=== PATIENT | male | born 1940 | race Caucasian/White ===

== ENCOUNTER 2019-03-07 20:56 | Inpatient (IN) | payer OTHER ==
[~2019-03-07] VITALS: Ht 177.8 cm; Wt 83.5 kg
[2019-03-07 20:58] VITALS: Ht 177.8 cm; Wt 83.5 kg
--- NOTE | 2019-03-07 20:58 | NUR ---
PT PRESENTED TO ED VIA AMBULANCE FOR GENERALIZED WEAKNESS, SOB, AND RIGHT LEG PAIN. MEDIC STATES THAT FAMILY REPORTED PT "SWEATY LAYING ON BED" AND "APPEARED SOB" TODAY.MEDIC STATES UPON ARRIVAL PT DENIED SOB, BUT REPORTED DIZZINESS. MEDIC STATES EXERTIONAL SOB WHEN ASSISTING PT FROM BED TO GURENY. MEDIC STATES PT CALM & COOPERATIVE. MEDIC STATES PT DESAT WITH ACTIVITY AND UPON ARRIVAL TO ED. PT A&OX4, SPEAKING FULL CLEAR SENTENCES ON 02 VIA NC. PT IN NAD. BREATHING EVEN AND UNLABORED. PITTING EDEMA NOTED TO BLE. FAMILY STATES THEY ATTEMPTED TO BP AT HOME AND "BP WAS ALL OVER THE PLACE". PT IN NAD. CM AND [address] FAMILY AT BEDSIDE. WILL CONTINUE TO MONITOR.
[2019-03-07 21:37] LABS: BASOPHIL % 0.5 % (0-2); PLATELET COUNT 237 x10^3mcL (130-400); RED CELL DISTRIBUTION WIDTH 14.4 % (11.5-14.5)
[2019-03-07 21:46] LABS: CALCIUM 9.6 mg/dL (8.5-10.1); CARBON DIOXIDE 26.4 mmol/L (21-32); CHLORIDE SERUM 98 mmol/L (98-107); CREATININE SERUM 1.3 mg/dL (0.7-1.3); GLUCOSE SERUM 221 mg/dL (74-106); POTASSIUM SERUM 4.5 mmol/L (3.5-5.1); SODIUM SERUM 137 mmol/L (136-145)
--- NOTE | 2019-03-07 21:50 | NUR ---
ASSISTED PT TO SITTING POSITION ON SIDE OF GURNEY IN ATTEMPT TO OBTAIN URINE SAMPLE. PT STATES UNABLE TO PROVIDE URINE AT THIS TIME. EDUCATED PT AND FAMILY ON IMPORTANCE OF OBTAINING URINE. PT AND FAMILY ACKNOWLGED. PT ASSISTED BACK TO LAYING POSITION WITH HOB RAISED FOR COMFORT. DR SALMERON MADE AWARE.
[2019-03-07 21:56] LABS: ALBUMIN 3.2 g/dL (3.4-5.0); ALKALINE PHOSPHATASE 92 U/L (46-116); ALT/SGPT 57 U/L (16-63); AST/SGOT 41 U/L (15-37); BILIRUBIN TOTAL 0.6 mg/dL (0.20-1.00); TOTAL PROTEIN, SERUM 7.3 g/dL (6.4-8.2)
--- NOTE | 2019-03-07 22:02 | NUR ---
PT TO RADIOLOGY VIA [facility]
--- NOTE | 2019-03-07 22:36 | NUR ---
PER DR SALMERON, STRAIGHT CATH PT FOR URINE SAMPLE. PT STRAIGHT CATHED WITH APPROX 100 CC URINE OUTPUT. PT TOLERATED WELL. ACCOMPANIED BY EMT DOREEN.
[2019-03-07 22:48] LABS: UA SPECIFIC GRAVITY 1.025 (1.005-1.035); microscopic required? YES
[2019-03-07 22:49] LABS: urine erythrocyte 2+ (NEGATIVE)
--- NOTE | 2019-03-07 22:50 | NUR ---
PT C/O PAIN 10/[address] SALMERON MADE AWARE, AWAITING ORDERS AT THIS TIME.
--- NOTE | 2019-03-07 23:00 | NUR ---
MORPHINE 4 MG IVP TO L AC GIVEN BY ME, NOT MACO FITZGERALD.
--- NOTE | 2019-03-08 00:03 | NUR ---
CALLED REPORT TO CEE FITZGERALD.
--- NOTE | 2019-03-08 00:35 | NUR ---
PT TRANSFERED VIA GURNEY AT THIS TIME IN NAD. BREATHING EVEN AND UNLABORED. PT A&OX4, SPEAKING FULL CLEAR SENTENCES. IV FLUIDS RUNNING AT ORDERED RATE. PT ACCOMPANIED BY EMT AND RN JAZZMINE. BELONGINGS SENT WITH PT.
[2019-03-08 00:58] VITALS: BP 100/52
--- NOTE | 2019-03-08 01:03 | NUR ---
RECEIVED PT FROM ED VIA ANGY. ORIENTED PT TO ROOM AND SURROUNDINGS. IV NOTED TO LAC PATENT AND INTACT. TELE 1 PLACED ON PT READING SR WITH DEPRESSED T WAVE. INSTRUCTED PT ON THE USE OF CALL LIGHT FOR ASSISTANCE. ENDORSED PT TO PRIMARY NURSE MICHAEL
--- NOTE | 2019-03-08 01:34 | NUR ---
PT STATES DIFFICULTY URINATING, PER PT SPOUSE PT HAS NOT URINATED SINCE 03/07/[address] VALENZUELA CALLED, AWAITING CALL BACK. PT IV BOLUS INFUSING AT THIS TIME. WILL DO BP RECHECK AFTER COMPLETED.
--- NOTE | 2019-03-08 03:03 | NUR ---
PT IS RESTING IN BED WITH EYES CLOSED AT THIS TIME. NO ACUTE DISTRESS NOTED. SAFETY AND COMFORT MEASURES MAINTAINED, BED IN LOWEST POSITION, CALL LIGHT WITHIN REACH, WILL CONTINUE TO MONITOR AT THIS TIME.
--- NOTE | 2019-03-08 03:18 | NUR ---
PT THIRD BOLUS COMPLETED. POST VITALS SIGNS ARE BP 98/62 MAP OF 73 HR 94. NO ACUTE DISTRESS NOTED. WILL CONTINUE TO MONITOR THE PATIENT.
[2019-03-08 05:39] VITALS: BP 110/69
--- NOTE | 2019-03-08 05:46 | NUR ---
PT SLEPT IN INTERMITTENT INTERVALS THROUGHOUT THE SHIFT, NO ACUTE DISTRESS NOTED. PT HAS BEEN ALERT AND ORIENTED X2, PT HAS CONFUSION SPELLS. IV INFUSING AND INTACT AT THIS TIME. PT HAS NO COMPLAINT OF PAIN AT THIS TIME. SAFETY AND COMFORT MEASURES MAINTAINED, BED IN LOWEST POSITION, CALL LIGHT WITHIN REACH, WILL ENDORSE CONTINUITY OF CARE TO THE ONCOMING RN. WILL CONTINUE TO MONITOR.
[2019-03-08 06:37] LABS: PLATELET COUNT 204 x10^3mcL (130-400); RED CELL DISTRIBUTION WIDTH 14.5 % (11.5-14.5)
[2019-03-08 07:03] LABS: CARBON DIOXIDE 23.9 mmol/L (21-32); CHLORIDE SERUM 105 mmol/L (98-107); CREATININE SERUM 1.1 mg/dL (0.7-1.3); GLUCOSE SERUM 135 mg/dL (74-106); MAGNESIUM 1.9 mg/dL (1.8-2.4); POTASSIUM SERUM 5.2 mmol/L (3.5-5.1); SODIUM SERUM 139 mmol/L (136-145)
[2019-03-08 07:23] LABS: FREE T4 1.29 ng/dL (0.76-1.46); FREE THYROXINE INDEX 2.5 ug/dL (1.4-4.5); T4(THYROXINE) 6.8 ug/dL (4.7-13.3)
--- NOTE | 2019-03-08 07:30 | NUR ---
RECIEVED PT IN BED RESTING. STABLE WITH AT BEDSIDE. SAFETY PRECAUTIONS IN PLACE. CALL LIGHT WITHIN REACH. ASSESSED AND DOCUMENTED. WILL CONTINUE TO MONITOR.
[2019-03-08 07:36] LABS: T3 TOTAL 0.93 ng/mL
--- NOTE | 2019-03-08 09:00 | NUR ---
CAME TO SEE THE PT. INFORMED HIM ABOUT K=5.2. WBC=13.2, TROP 0.721 AND LACTIC ACID=2.1. NO NEW ORDER RECEIVED THIS TIME. INFORMED HIM ABOUT ER STRAIGHT CATH PT FOR URINE LAST NIGHT,AFTER THAT HE HAS NOT VOIDED. SAID IF HAS NOT VOIDED ANOTHER 4 MORE HOUR, INSERT OLIVIER CATH. WILL MONITOR THE PT. INFORMED RN KATEY,PRIMARY NURSE ABOUT THAT.
--- NOTE | 2019-03-08 09:00 | NUR ---
INFORMED ABOUT PT C/O RT LEG PAIN, HE SAID HE WILL ORDER US BLE.
[2019-03-08 09:44] VITALS: BP 114/64
--- NOTE | 2019-03-08 10:15 | NUR ---
PAGED FOR TO INFORM US VENEOUS BLE RESULT.
--- NOTE | 2019-03-08 10:58 | NUR ---
CALLED AND INFORMED HIM ABOUT US BLE VENEOUS RESULT, RECEIVED ORDER FOR LOVENOX 80MG SQ START FROM NOW, WILL START [facility] AVAILABLE.
--- NOTE | 2019-03-08 11:50 | NUR ---
BLADDER SCAN DONE PER CHARGE NURSE. FOUND 250 TO 300 ML URINE IN THE BLADDER. BLADDER IS NOT DISTENTED, NO TENDERNESS. FAMILY AT BEDSIDE.
--- NOTE | 2019-03-08 12:15 | NUR ---
2 RN AND ICE CREAM DISPENSER ASSISTED PT TO STAND UP FOR VOID, PT STANDING UP AND TRYING TO VOID. 1 RN AND ICE CREAM DISPENSER STILL STAYING WITH PT. PT VOIDED APPROX 350ML. STABLE.
--- NOTE | 2019-03-08 12:42 | NUR ---
TROP IS 0.644, TRENDING DOWN. AWARE ABOUT LAST TROP 0.721. PT IS STABLE. ON LOVENOX SQ AND GIVEN.
[2019-03-08 12:47] VITALS: BP 104/47
[2019-03-08 14:52] LABS: BAND NEUTROPHIL 1 % (0-10); BASOPHIL 0 % (0-2); MONOCYTE 6 % (0-7); SEGMENTED NEUTROPHILS 87 % (37-75)
[2019-03-08 14:53] LABS: PLATELET MORPHOLOGY PLATELETS DECREASED; ovalocyte/elliptocyte 3+; rbc morphology (normal/abnorm) ABNORMAL (NORMAL)
--- NOTE | 2019-03-08 15:50 | NUR ---
INFORMED ABOUT CT ANGIO PLUM RESULT. HE SAID TO START PT ON HEPARIN DRIP, PHARMACY TO DOSE.
--- NOTE | 2019-03-08 16:15 | NUR ---
PHARMACIST INFORMED THAT PT HAD LOVENOX SQ AT 1207 N , HEPARIN SHOULD BE START AFTER 12HR THE TIME OF LOVENOX GIVEN. PAGED TO INFORM ABOUT THAT.
--- NOTE | 2019-03-08 16:29 | NUR ---
DR. GIRALDO PAGED AND NOTIFIED THAT PER PHARMACY SINCE PT HAD LOVENOX TODAY WE WOULD NEED TO WAIT UNTIL 0000 TO START DRIP. PER MD PT NEED HEPARIN DRIP TO BE STARTED SOONER SINCE PT HAS LARGE PE. OBTAINED T.O TO START DRIP AT 2000 TONIGHT. SPOKE WITH PHARMACIST MADE AWARE THAT MD HAD ORDERED TO START EARLIER AT 8PM. ADDED ORDER TO INSTRUCTIONS FOR MEDICATION INSTRUCTED BY PHARMACIST. ATTENDING NURSE MADE AWARE.
--- NOTE | 2019-03-08 16:30 | NUR ---
CHARGE NURSE MADELINE SPOKE WITH , SHE SAID TO START HEPARIN DRIP AT 8PM. PT IS STABLE. FAMILY AT BEDSIDE.
[2019-03-08 17:07] VITALS: BP 108/76
--- NOTE | 2019-03-08 17:15 | NUR ---
PT RESTING IN BED COMFORTABLY. STABLE. NO SOB NOTED. FAMILY AT BEDSIDE.
--- NOTE | 2019-03-08 18:22 | NUR ---
HAZARDOUS MATERIAL SPECIALIST SAID SHE JUST CHANGED PT TELE PATCHES, SHE SAID PT HAVING SOB. CHECKED PT. PT HAVING AGONAL RYTHM AND DIFFICULT TO FIND PULSE. SR WITH BBB WITH ELEVATED T WAVE, HR 79 ON TELE MONITOR. PT IS TURNING BLUE AND NOTICED SALIVA FROTHING IN THE MOUTH AND NOT RESPONDING. CALLED [facility] AND START CPR. PT WAS ON 3L N/C. CHARGE NURSE STARTED BAG MASK PT. CODE TEAM ARRIVED AND CODE PROTOCOLE INITIATED. PLEASE SEE [facility] RECORD SHEET. AND SUPERVISIOR ALEXANDR AT BEDSIDE. PT'S AND FAMILY MEMBER IS AT BEDSIDE. CODE WAS CALLED AT 1824.
--- NOTE | 2019-03-08 18:50 | NUR ---
DR. GIRALDO CALLED AND MADE AWARE PT PT HAD CODED AT 1824, WITH ONGOING [facility] AT THIS TIME. DR. OWENS FROM ER RUNNING THE CODE. REQUESTED TO BE NOTIFIED OF OUTCOME AND TO TRANSFER TO ICU IF PT SURVIVED CODE. MADE AWARE FAMILY WAS AT BEDSIDE.
--- NOTE | 2019-03-08 18:53 | NUR ---
PT HAS PULSE 76 AND ORGANIZED RHYTHM. PT WAS INTUBATED DURNING CODE. WHILE STARTING ROSC PT TURN TO ASYSTOLE AGAIN AND CODE INITIATED SECOUND TIME. SEE [facility] RECORD SHEET.
--- NOTE | 2019-03-08 19:03 | NUR ---
PT HAD PULSE AGAIN 78 AND RHYTHM. WHILE STARTING ROSC CARE PT WENT IN ASYSTOLE AGAIN AND NO PULSE. CODED THRID TIME AT 1905. FAMILY IS REQUESTING TO STOP CODE. CODE ENDED AND DR.WINN SANCHEZ PRONOUNCED AT 1912.
--- NOTE | 2019-03-08 19:05 | NUR ---
DR. GIRALDO CALLED [facility] MADE AWARE THAT PT HAD ACHIVED ROSC X2 AT THAT THEY HAD JUST STARTED COMPRESSION FOR THE THIRD TIME. MD ONCE MORE REQUESTED TO BE NOTIFIED OF OUTCOME.
--- NOTE | 2019-03-08 20:30 | NUR ---
CALLED [facility] AND SPOKE WITH AND ANSWERED ALL HER QUESTIONS. GOT THE REFERAL NUMBER [id number]. CHARGE NURSE CALLED [facility]. GAVE REPORT TO BAKER BISCUITGIULIA RODRIGUEZ FOR FURTHER CARE.
--- NOTE | 2019-03-08 20:36 | NUR ---
DEATH CLAIM CLERK'S OFFICE CALLED AND SPOKE WITH BRENDAN FROM [facility] OFFICE TO PUT OUT PAGE TO DEATH CLAIM CLERK PROCUREMENT COST COORDINATOR. ATTENDING NURSE MADE AWARE.
--- NOTE | 2019-03-08 22:32 | NUR ---
SPOKE WITH ENGLISH AS A SECOND LANGUAGE INSTRUCTOR ELDER VILLALTA. REPORT GIVEN ON THE EVENTS THAT OCCURED WITH PT. PT BODY RELEASED BY ENGLISH AS A SECOND LANGUAGE INSTRUCTOR, ENGLISH AS A SECOND LANGUAGE INSTRUCTOR STATES IT WILL NOT BE A CORONERS CASE. DOCUMENTS SIGNED AND UPDATED.
--- NOTE | 2019-03-08 22:56 | NUR ---
[facility] CALLED TO GET STATUS UPDATE ON PT. AWAITING CALL BACK.
--- NOTE | 2019-03-09 01:45 | NUR ---
SPOKE WITH [facility], INFORMATION THAT WAS REQUESTED WAS GIVEN. NO FURTHER ORDERS GIVEN ABOUT PT.
== END 2019-03-08 19:12 | disposition expired | DRG 176 ==
LOC: ED 20:56 → DU 23:31
PROVIDERS: Emergency Medicine; ADMIT Internal Medicine Pulmonary Disease
DX: I26.99 Other pulmonary embolism without acute cor pulmonale (principal); E87.2 Acidosis; I82.431 Acute embolism and thrombosis of right popliteal vein; I11.0 Hypertensive heart disease with heart failure; I50.810 Right heart failure, unspecified; E86.0 Dehydration; I27.20 Pulmonary hypertension, unspecified; Z68.27 Body mass index [BMI] 27.0-27.9, adult; Z87.891 Personal history of nicotine dependence; Z87.820 Personal history of traumatic brain injury; Z98.2 Presence of cerebrospinal fluid drainage device
CPT/HCPCS: 83880; 84439; J0696; J1644; J1650; J2270; J2405; J2997; J3490; J7030; Q0092; Q9967